=== PATIENT | female | born 1940 | race American Indian/Alaskan Native ===

== ENCOUNTER 2021-10-10 09:03 | Day surgery (SDC) | payer MEDICARE ==
[2021-10-10] MEDS ORDERED: ASPIRIN EC 325 MG TAB PO NR (09:32)
[2021-10-10] MEDS ORDERED: CLOPIDOGREL 75 MG TAB PO NR (10:04)
[2021-10-10 10:31] LABS: Basophils % (Auto) 0.6 % (0.0-1.8); Eosinophils # (Auto) 0.1 K/mm3 (0.0-0.4); Eosinophils % (Auto) 1.8 % (0.0-4.3); Hematocrit 35.1 % (30.3-42.9); Hemoglobin 11.9 gm/dl (10.1-14.3); Lymphocytes # (Auto) 2.4 K/mm3 (1.2-5.4); Mean Corpuscular HGB Conc 34 % (30-34); Mean Corpuscular Volume 95 fl (79-97); Monocytes # (Auto) 0.7 K/mm3 (0.0-0.8); Monocytes % (Auto) 8.8 % (0.0-7.3); Platelet Count 207 K/mm3 (140-440); Red Blood Count 3.72 M/mm3 (3.65-5.03); Red Cell Distribution Width 13.8 % (13.2-15.2)
[2021-10-10 10:39] LABS: INR 0.92 (0.87-1.13)
[2021-10-10 10:47] LABS: BUN/Creatinine Ratio 33; Blood Urea Nitrogen 26 mg/dL (7-17); Calcium 9.1 mg/dL (8.4-10.2); Hemolysis Index 176
[2021-10-10] MEDS ORDERED: CLOPIDOGREL 75 MG TAB ONE (11:21)
[2021-10-10] MEDS: SODIUM CHLORIDE 0.9% 500 ML 500 ML IV SCH ×2 (11:32→13:32)
[2021-10-10] MEDS ORDERED: HEPARIN 10,000 UNITS/10 ML VIAL ONE (12:38)
[2021-10-10] MEDS ORDERED: HEPARIN/NS 5000 UNIT/500ML 1,000 ML IR ONE (12:38)
[2021-10-10] MEDS ORDERED: MIDAZOLAM 2 MG/2 ML INJ ONE (12:38)
[2021-10-10] MEDS ORDERED: NITROGLYCERIN SYRINGE 0 ML ONE (12:39)
[2021-10-10] MEDS ORDERED: fentaNYL 100 MCG/2 ML INJ ONE (12:39)
[2021-10-10] MEDS ORDERED: VERAPAMIL 5 MG/2 ML INJ ONE (12:39)
[2021-10-10] MEDS ORDERED: LIDOCAINE (1%) 10 MG/1 ML VIAL 20 ML MDV ONE (12:40)
[2021-10-10] MEDS ORDERED: hydrALAZINE 20 MG/1 ML INJ ONE (13:54)
[2021-10-10] MEDS ORDERED: traMADol 50 MG TAB PO PRN (14:35)
--- NOTE | 2021-10-10 14:38 | Discharge Summary ---
Short Stay Discharge Plan Activity: advance as tolerated Weight Bearing Status: Partial Weight Bearing Diet: low fat, low cholesterol, low salt, diabetic Wound: keep clean and dry Special Instructions: no heavy lifting (3 days), hold Metformin (48 hours) Follow up with: SHAWN SORIANO MD [Primary Care Provider] - 7 Days KEILA ARELLANO MD [Staff Physician] - 7 Days
[2021-10-10] MEDS ORDERED: SODIUM CHLORIDE 0.9% 1000 ML 1,000 ML IV SCH (14:45)
--- NOTE | 2021-10-10 14:46 | Cardiac Catherization Report ---
DATE OF SERVICE: 10/10/2021 REASON FOR PROCEDURE: The patient is an 80-year-old woman with multivessel coronary artery disease. She presented with progressive exertional dyspnea and fatigue, and due to persistent and progressive symptoms, she was referred for right and left heart catheterization. PROCEDURES: 1. Right heart catheterization. 2. Left heart catheterization. 3. Selective left and right coronary angiography. 4. Left ventricular angiography. 5. Sedation time start 1331, end 1414. DESCRIPTION OF PROCEDURE: The patient was prepped and draped in a sterile fashion after informed consent. The right femoral artery and vein were both entered using Seldinger technique. A 6-Bruneian sheath was inserted into the artery and an 8-Bruneian sheath in the vein. A [place] catheter was then advanced to the pulmonary artery position. Cardiac output was measured using thermodilution method. A right Emmett catheter was then advanced into the left ventricle. Simultaneous left and right heart filling pressures were measured. The [place] catheter was then withdrawn and right heart pressures recorded on pullback. Left ventricular angiography was then performed using a hand injection via the right Emmett catheter. The right Emmett catheter was then withdrawn across the aortic valve and transaortic gradient was recorded. We then performed left and right coronary angiography. The left coronary angiography was successfully done using a #4 left Emmett catheter. 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 The catheters were then removed, sheath removed, hemostasis achieved over both arterial and venous sites with manual compression. The patient was returned to the postprocedure unit in stable condition. There were no complications. FINDINGS: HEMODYNAMICS: The mean right atrial pressure was 8. Right ventricular pressure was 35/8-10. Pulmonary artery pressure was 35/15. Mean pulmonary artery wedge pressure was 10. Left ventricular end-diastolic pressure was 12-15. Cardiac output was 4.84 liters per minute. Ascending aortic pressure was 182/90. There was no significant pressure gradient on pullback across the aortic valve. CORONARY ANGIOGRAPHY: The left main coronary artery was without significant disease. A stent was visible in the mid LAD. The stented segment was widely patent. There was a 50% stenosis of the proximal segment of a small proximal diagonal branch of the LAD. Otherwise, the rest of the LAD and diagonal branches remained patent. The first obtuse marginal branch of the circumflex was a medium sized vessel that contained a 30%-50% stenosis of its proximal segment. The circumflex then continued, terminating in a large bifurcating terminal branch. The superior subbranch of this large obtuse marginal contained a stent, which was also widely patent. The right coronary artery was dominant. 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 We were successfully able to cannulate this vessel using a multipurpose catheter. A stent was visible in the proximal right coronary artery. The stented segment of this vessel was also widely patent. Otherwise, mild irregularities were noted in the rest of the right coronary system. Left ventricular systolic function was well preserved with ejection fraction 50%-55%. CONCLUSION: 1. Normal right and left heart filling pressures, mild pulmonary hypertension. 2. Multivessel coronary artery disease. 3. Patent mid left anterior descending stent. 4. Patent distal circumflex artery stent. 5. Patent proximal right coronary artery stent. 6. Otherwise, mild nonobstructive residual small vessel atherosclerosis. 7. Well preserved left ventricular systolic function, ejection fraction 50%-55%. RECOMMENDATIONS: The patient will be recommended for risk factor modification and medical therapy. TID: [id number] RECEIPT: [id number] JAMIR/HANG
[2021-10-10 17:52] VITALS: BP 150/65
== END 2021-10-10 18:30 | disposition home or self-care (01) ==
LOC: CATHLABREC 09:03
PROVIDERS: ATTEND Internal Medicine Cardiovascular Disease
DX: I25.110 Atherosclerotic heart disease of native coronary artery with unstable angina pectoris (principal); R06.09 Other forms of dyspnea; R53.83 Other fatigue; I44.1 Atrioventricular block, second degree; E78.00 Pure hypercholesterolemia, unspecified; M19.90 Unspecified osteoarthritis, unspecified site; E10.9 Type 1 diabetes mellitus without complications; I10 Essential (primary) hypertension; I77.1 Stricture of artery; Z79.899 Other long term (current) drug therapy; Z79.4 Long term (current) use of insulin; Z79.82 Long term (current) use of aspirin; Z87.891 Personal history of nicotine dependence; Z80.8 Family history of malignant neoplasm of other organs or systems; Z95.5 Presence of coronary angioplasty implant and graft; Z98.890 Other specified postprocedural states; Z86.010 Personal history of colon polyps; Z90.710 Acquired absence of both cervix and uterus; Z83.3 Family history of diabetes mellitus; Z82.5 Family history of asthma and other chronic lower respiratory diseases; Z82.49 Family history of ischemic heart disease and other diseases of the circulatory system
CPT/HCPCS: 36415; 80048; 84132; 85025; 85610; 93460; 99156; 99157; C1894; J0360; J1644; J2250; J3010; J7040; J1815; Q9967